=== PATIENT | male | born 1980 | race Two or more races ===

== ENCOUNTER 2023-07-22 05:10 | Day surgery (SDC) | payer OTHER ==
[~2023-07-22 05:10] MED LIST: CARAFATE1 GM PO; GABAPE PO; MEDI-MECLIZINE25 MG PO; TIROSINT50 MCG PO
[2023-07-22] MEDS ORDERED: OXYC1TAB9 PO (08:43)
== END 2023-07-22 14:00 | disposition home or self-care (01) ==
LOC: CIR.AMB 05:10
PROVIDERS: ATTEND Surgery
DX: K64.8 Other hemorrhoids (principal); K64.4 Residual hemorrhoidal skin tags; K62.89 Other specified diseases of anus and rectum; K62.5 Hemorrhage of anus and rectum; K61.0 Anal abscess; Z20.822 Contact with and (suspected) exposure to COVID-19; I10 Essential (primary) hypertension

== ENCOUNTER 2024-03-29 07:11 | Day surgery (SDC) | payer OTHER ==
[~2024-03-29] VITALS: Ht 175.3 cm; Wt 113.4 kg
[~2024-03-29 07:11] MED LIST changes: +OXYC1TAB9 PO; +PEPCID40 MG PO; +PROTONIX20 MG PO; +ZANAFLEX4 M1 PO
[2024-03-29] MEDS ORDERED: POVIDONE-IODINE 118 ML BOTT TOP SCH (14:45)
[2024-03-29] MEDS ORDERED: HEMOSTATIC MATRIX 1 KIT KIT TOP SCH (14:45)
[2024-03-29] MEDS ORDERED: CEFTRIAXONE SODIUM 2,000 MG VIAL IV SCH (14:45)
[2024-03-29] MEDS ORDERED: METRONIDAZOLE/SODIUM CHLORIDE 500 MG/100 ML PIGGYBACK IV SCH (14:45)
[2024-03-29] MEDS ORDERED: DIBUCAINE 30 GM TUBE RECTAL SCH (14:45)
[2024-03-29] MEDS ORDERED: LIDOCAINE HCL 1%/EPINEPHRINE 20ML VIAL IJ SCH (14:45)
[2024-03-29] MEDS ORDERED: BUPIVACAINE HCL 30 ML VIAL IJ SCH (14:45)
[2024-03-29] MEDS ORDERED: TAMSULOSIN HCL 0.4 MG CAP PO ONE (15:00)
[2024-03-29] MEDS ORDERED: OXYC1TAB9 PO (15:01)
== END 2024-03-29 20:00 | disposition home or self-care (01) ==
LOC: CIR.AMB 07:11
PROVIDERS: ATTEND Surgery
DX: K60.1 Chronic anal fissure (principal); K62.4 Stenosis of anus and rectum; K62.89 Other specified diseases of anus and rectum; K59.4 Anal spasm; K64.8 Other hemorrhoids; K62.5 Hemorrhage of anus and rectum; Z88.6 Allergy status to analgesic agent; K21.9 Gastro-esophageal reflux disease without esophagitis; E03.9 Hypothyroidism, unspecified